=== PATIENT | female | born 2000 | race Caucasian/White ===

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

== ENCOUNTER 2022-08-27 20:30 | Emergency (ER) | payer OTHER ==
[2022-08-27 20:42] VITALS: BP 142/74; PULSE 118; O2SAT 98
--- NOTE | 2022-08-27 21:06 | ERPHSYRPT ---
- History of Present Illness Source: patient Exam Limitations: no limitations Patient Subjective Stated Complaint: sore throat, sore ears, body aches, fatigue, headache since this morning . states she took a rapid covid at home and it was negative. Triage Nursing Assessment: pt alert and orietned, appears generally well. anwers questions appropriatly, rates pain in throat and body aches at 8/10 Physician History: 21 yo [address]F w [address]/chills/otalgia/headache today. Pt denies cough/coryza/N/V/D/dysuria/hematuria/abdominal pain/. Timing/Duration: gradual onset Severity: mild ENT Location: ear (R), ear (L), throat Prearrival Treatment: no prearrival treatment Modifying Factors: Improves With: nothing Associated Symptoms: ear pain (R), ear pain (L), chills, headache Allergies/Adverse Reactions: ceftriaxone sodium [From Rocephin] Allergy (Verified 01/10/13 22:59) Sulfa (Sulfonamide Antibiotics) Allergy (Verified 01/10/13 22:59) Hx Tetanus, Diphtheria Vaccination/Date Given: Yes Travel Risk - International Travel Have you traveled outside of the country in past 3 weeks: No - Coronavirus Screening Are you exhibiting any of the following symptoms?: Yes Symptoms: Cough: New Onset, Headaches/Body Aches/Fatigue - Vaccine Status Have you recieved a Covid-19 vaccination: Yes 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: [place] - Vaccination Dates Date of 2cond Vaccination (if applicable): unknown - Review of Systems Constitutional: No Symptoms, Chills, Malaise Eyes: No Symptoms Ears, Nose, & Throat: No Symptoms, Ear Pain, Throat Pain Respiratory: No Symptoms Cardiac: No Symptoms Abdominal/Gastrointestinal: No Symptoms Genitourinary Symptoms: No Symptoms Musculoskeletal: No Symptoms Skin: No Symptoms Neurological: No Symptoms, Headache Psychological: No Symptoms Endocrine: No Symptoms Hematologic/Lymphatic: No Symptoms Immunological/Allergic: No Symptoms - Past Medical History Pertinent Past Medical History: No Neurological History: No Pertinent History ENT History: No Pertinent History Cardiac History: No Pertinent History Respiratory History: No Pertinent History Endocrine Medical History: No Pertinent History Musculoskeletal History: No Pertinent History GI Medical History: No Pertinent History History: No Pertinent History Psycho-Social History: No Pertinent History Female Reproductive Disorders: No Pertinent History Other Medical History: Tonsils absent - Past Surgical History Past Surgical History: Yes Neuro Surgical History: No Pertinent History Cardiac: No Pertinent History Respiratory: No Pertinent History Gastrointestinal: No Pertinent History Genitourinary: No Pertinent History Musculoskeletal: No Pertinent History Female Surgical History: No Pertinent History Other Surgical History: T&A MYRINGOTOMY - Social History Smoking Status: Never smoker Drug Use: none Patient Lives Alone: No - Female History Hx Last Menstrual Period: nexplanon Hx Now: No - Nursing Vital Signs Nursing Vital Signs: Initial Vital Signs Temperature 98.6 F 08/27/22 20:37 Pulse Rate 118 H 08/27/22 20:37 Respiratory Rate 18 08/27/22 20:37 Blood Pressure 142/74 08/27/22 20:37 O2 Sat by Pulse Oximetry 98 08/27/22 20:37 Pain Scale Pain Intensity 8 Hypertensive/Tachy - Physical Exam General Appearance: no apparent distress Eye Exam: bilateral eye: normal inspection, PERRL, EOMI Ear Exam: bilateral ear: auricle normal, canal normal, TM normal Nasal Exam: normal inspection Throat Exam: normal, pharynx normal, No pharynx swelling, No tonsillar swelling Neck Exam: normal inspection, non-tender, supple, full range of motion, trachea midline, No Brudzinski's sign, No Kernig's sign Cardiovascular/Respiratory Exam: normal breath sounds, tachycardia Abdominal Exam: non-tender, soft Neurologic Exam: alert, oriented x 3, cooperative, nursing education specialist II-XII nml as tested, normal mood/affect, nml cerebellar function, nml station & gait, sensation nml Skin Exam: normal color, warm, dry SpO2 Interpretation: normal SpO2: 98 O2 Delivery: Room Air - Course Nursing assessment & vital signs reviewed: Yes Ordered Tests: Medication Summary Discontinued Medications Generic Name Dose Route Start Last Admin Trade Name Freq PRN Reason Stop Dose Admin Penicillin G Benzathine 1.2 mu 08/27/22 21:22 08/27/22 21:29 Penicillin G Benzathine 1.2 Mu/2 Ml Syringe IM 08/27/22 21:23 1.2 mu STAT ONE Administration Penicillin G Benzathine Confirm 08/27/22 21:28 Penicillin G Benzathine 1.2 Mu/2 Ml Syringe Administered 08/27/22 21:29 Dose 1.2 mu IM .[facility] Lab/Rad Data: Laboratory Results 08/27/22 08/27/22 Range/Units 20:50 20:50 Influenza Type A Ag NEGATIVE (NEGATIVE) Influenza Type B Ag NEGATIVE (NEGATIVE) RSV (PCR) NEGATIVE (NEGATIVE) SARS-CoV-2 (PCR) NEGATIVE (NEGATIVE) Group A Strep Antibody DETECTED (NEGATIVE) - Progress Progress Note: 08/27/22 21:23 Nursing note and vital signs reviewed No food or housing insecurities noted Lab results reviewed and shared w pt Pt requests IM PCN for +Strep Additional history per mother by phone Pt allergic to Rocephin but pt/mother state that she has had PCN many times in the past wo problems 08/27/22 21:25 Counseled pt/family regarding: lab results, diagnosis, need for follow-up Medical Desision Making - Independent Historian Additional History obtained from: Mother - Diagnostic Testing Diagnostic test were ordered, analyzed, and reviewed by me: Yes - Risk of complications Low Risk: Low risk of morbidity from additional dx testing or treatment - Departure Departure Disposition: Home Clinical Impression: Strep pharyngitis Condition: Stable Critical Care Time: No Referrals: NERI MARROQUIN [Primary Care Provider] - Follow up/PCP as directed Instructions: Strep Throat (DC) Additional Instructions: Rest/Fluids/Motrin/Tylenol Follow up with your family MD as needed Forms: Work/School Release Form
[2022-08-27] MEDS ORDERED: Bicillin L-A 1.2 Mu/2ML SYRINGE IM ONE ×2 (21:22→21:28)
[2022-08-27 21:27] LABS: INFLUENZA A NEGATIVE (NEGATIVE); INFLUENZA B NEGATIVE (NEGATIVE); RESPIRATORY SYNCTIAL VIRUS NEGATIVE (NEGATIVE); SARS-CoV-2 Xpert Express NEGATIVE (NEGATIVE)
== END 2022-08-27 21:50 | disposition home or self-care (01) ==
LOC: ED 20:30
DX: J02.0 Streptococcal pharyngitis (principal); H92.03 Otalgia, bilateral; R51.9 Headache, unspecified
CPT/HCPCS: 0241U; 87651; 96372; 99283; J0561

== ENCOUNTER 2023-01-06 21:36 | Emergency (ER) | payer OTHER ==
[2023-01-06 23:26] VITALS: RESP 18; TEMP 98.8
--- NOTE | 2023-01-06 23:32 | ERPHSYRPT ---
- History of Present Illness Time Seen by Provider: 01/06/23 21:39 Source: patient Exam Limitations: no limitations Patient Subjective Stated Complaint: pt states I was doing a basket at tumbling and felt a bump Triage Nursing Assessment: pt ambulated into the er; pt is axo x4; c/o rt wrist pain; pt states 4/10 pain to rt wrist; strong rt radial pulse; good cap refill to rt hand; limited ROM to rt wrist; hypertensive; skin PDW; no respiratory d istress present Physician History: 22-year-old right-handed dominant female presented to the ER with chief complaint of right wrist pain and swelling while she was playing prior to arrival. Complaining of mild to moderate pain with swelling and limited range of motion. Known numbness or tingling of the fingers/thumb. No injury anywhere else. Allergies/Adverse Reactions: ceftriaxone sodium [From Rocephin] Allergy (Verified 01/06/23 23:13) Sulfa (Sulfonamide Antibiotics) Allergy (Verified 01/06/23 23:13) Home Medications: Albuterol Sulfate [Proair Respiclick] 2 puff IH Q4HPRN PRN 01/06/23 [History] Hx Tetanus, Diphtheria Vaccination/Date Given: Yes Hx Influenza Vaccination/Date Given: No Hx Pneumococcal Vaccination/Date Given: No Immunizations Up to Date: No Travel Risk - International Travel Have you traveled outside of the country in past 3 weeks: No - Coronavirus Screening Are you exhibiting any of the following symptoms?: No Close contact with a COVID-19 positive Pt in past 14-21 Days: No - Vaccine Status Have you recieved a Covid-19 vaccination: Yes 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[employer] - Vaccination Dates Date of 2cond Vaccination (if applicable): unknown - Review of Systems Constitutional: No Symptoms Ears, Nose, & Throat: No Symptoms Respiratory: No Symptoms Cardiac: No Symptoms Abdominal/Gastrointestinal: No Symptoms Genitourinary Symptoms: No Symptoms Musculoskeletal: Injury, Joint Pain Skin: No Symptoms Neurological: No Symptoms Psychological: No Symptoms Hematologic/Lymphatic: No Symptoms - Past Medical History Pertinent Past Medical History: No Neurological History: No Pertinent History ENT History: No Pertinent History Cardiac History: No Pertinent History Respiratory History: No Pertinent History Endocrine Medical History: No Pertinent History Musculoskeletal History: No Pertinent History GI Medical History: No Pertinent History History: No Pertinent History Psycho-Social History: No Pertinent History Female Reproductive Disorders: No Pertinent History Other Medical History: Tonsils absent - Past Surgical History Past Surgical History: Yes Neuro Surgical History: No Pertinent History Cardiac: No Pertinent History Respiratory: No Pertinent History Gastrointestinal: No Pertinent History Genitourinary: No Pertinent History Musculoskeletal: No Pertinent History Female Surgical History: No Pertinent History Other Surgical History: T&A MYRINGOTOMY - Social History Smoking Status: Never smoker Exposure to second hand smoke: No Drug Use: none Patient Lives Alone: No - Female History Hx Now: No - Nursing Vital Signs Nursing Vital Signs: Initial Vital Signs Temperature 98.8 F 01/06/23 23:13 Pulse Rate 82 01/06/23 23:13 Respiratory Rate 18 01/06/23 23:13 Blood Pressure 145/99 01/06/23 23:13 O2 Sat by Pulse Oximetry 99 01/06/23 23:13 Pain Scale Pain Intensity 4 - Physical Exam General Appearance: no apparent distress, alert Eyes, Ears, Nose, Throat Exam: normal ENT inspection Neck Exam: normal inspection Cardiovascular/Respiratory Exam: normal breath sounds, regular rate/rhythm Wrist Exam: bone tenderness (Distal radius dorsal aspect), limited ROM (Minimal limitation), swelling Hand Exam: normal inspection, non-tender, no evidence of injury, normal ROM Neuro/Tendon Exam: normal sensation, normal motor functions Mental Status Exam: alert, oriented x 3, cooperative Skin Exam: normal color SpO2 Interpretation: normal SpO2: 99 O2 Delivery: Room Air Ordered Tests: Active Orders 24 hr Category Date Time Status WRIST (MIN 3 VIEWS) Stat Exams 01/06/23 23:12 Ordered - Progress Progress: improved Progress Note: 01/06/23 23:59 22-year-old right-handed dominant female presented to the ER with chief complaint of right wrist pain and swelling while she was playing prior to arrival. Complaining of mild to moderate pain with swelling and limited range of motion. Known numbness or tingling of the fingers/thumb. No injury anywhere else. She has soft tissue swelling around distal radius with some tenderness. Intact passive range of motion. Mild limitation active range of motion. Distal neurovascular intact. X-rays negative for fracture dislocation reviewed by me, official report is pending. Feeling better with ice application. Recommended Tylenol/ibuprofen and placed in Velcro splint and outpatient orthopedic follow- up. Counseled pt/family regarding: diagnosis, need for follow-up, rad results Medical Desision Making - Diagnostic Testing Diagnostic test were ordered, analyzed, and reviewed by me: Yes Radiological Interpretation: Interpreted by me, Reviewed by me - Risk of complications The pt has a mod risk of morbidity or mortality based on: Need for prescription drug management - Departure Departure Disposition: Home Clinical Impression: Right wrist sprain Condition: Stable Critical Care Time: No Referrals: NERI MARROQUIN [Primary Care Provider] - Follow up/PCP as directed ORTHO - AMINATA LAURENT NP [NON-STAFF PHY W/O PRIVILEGES] - Follow up/PCP as directed (Tomorrow for reevaluation) Instructions: Common Wrist Injuries (DC) Additional Instructions: Take Tylenol/ibuprofen as needed for pain. Intermittent ice application. Avoid exertional activities. Follow-up with orthopedics for reevaluation. Return to ER for any worsening. Prescriptions: Ibuprofen 600 mg PO Q6HPRN PRN 10 Days #20 tablet PRN Reason: Pain
[2023-01-07 04:21] VITALS: BP 97/67; PULSE 76; O2SAT 98
--- NOTE | 2023-01-07 09:18 | XRAY ---
Indication: Pain and bruising following fall. Comparison: None 3 view right wrist obtained. No bony, articular, or soft tissue abnormalities.
== END 2023-01-07 01:06 | disposition home or self-care (01) ==
LOC: ED 21:36
DX: S63.501A Unspecified sprain of right wrist, initial encounter (principal); Z79.899 Other long term (current) drug therapy
CPT/HCPCS: 73110; 99283; L3908